=== PATIENT | male | born 1980 | race Caucasian/White ===

== ENCOUNTER 2016-12-15 06:13 | Day surgery (SDC) | payer BC ==
[~2016-12-15] VITALS: Ht 172.7 cm; Wt 81.6 kg
[2016-12-15] VITALS (11 sets, daily range): BP systolic 99–139; BP diastolic 46–81
[~2016-12-15 06:13] MED LIST: FINASTERIDE5 MG ORAL; FISH OIL 1,3601 EACH PO; FISH OIL CAP1000 MG ORAL; KETOCONAZOLE120 ML TP; VITAMIN D2000 UNI2 PO
[2016-12-15] MEDS ORDERED: Surgicel 4in x 8in TOPIC ONE (06:56)
[2016-12-15] MEDS ORDERED: Bupivacaine w/Epi 0.5% 30ml Vial INJ ONE (06:57)
[2016-12-15] MEDS ORDERED: ceFAZolin sod 1 GM in NS 55 ML IVPB ONE (07:00)
--- NOTE | 2016-12-15 07:10 | Anethesia Preoperative Eval ---
Anesthesia Pre-op PMH/ROS General Date of Evaluation: Dec 15, 2016 Anesthesiologist: José Antonio ASA Score: ASA 1 Mallampati Score Class I : Soft palate, uvula, fauces, pillars visible Class II: Soft palate, uvula, fauces visible Class III: Soft palate, base of uvula visible Class IV: Only hard plate visible Mallampati Classification: Class I Surgeon: Drew Diagnosis: Bilateral varicocele Surgical Procedure: Bilateral laparoscopic varicocelectomy Anesthesia History: none Family History: no anesthesia problems Allergies: Coded Allergies: No Known Allergies (Unverified , 12/14/16) Medications: see eMAR Past Medical History Cardiovascular: Denies: CAD, HTN, [place], arrhythmia, other, valve dz Pulmonary: Denies: COPD, KIKE, asthma, other Gastrointestinal/Genitourinary: Denies: CRI, ESRD, GERD, other Neurologic/Psychiatric: Denies: CVA, TIA, dementia, depression/anxiety, other Endocrine: Denies: DM, hypothyroidism, other, steroids HEENT: Denies: NISQUALLY (L), NISQUALLY (R), cataract (L), cataract (R), glaucoma, other Hematology/Immune: Denies: DVT, anemia, bleeding disorder, other Musculoskeletal/Integumentary: Denies: DDD, DJD, OA, RA, edema, other PSxH Narrative: Right shoulder surgery Anesthesia Pre-op Phys. Exam Physician Exam Last Vital Signs Date Time Temp Pulse Resp B/P Pulse Ox O2 Delivery O2 Flow Rate FiO2 12/15/16 06:49 97.3 60 20 104/71 100 Room Air Constitutional: NAD Cardiovascular: RRR Respiratory: CTA Airway Exam Mallampati Score: Class I MO: full ROM: full Teeth: intact Anesthesia Pre-op A/P Labs see chart Risk Assessment & Plan Assessment: ASA I Plan: GA Status Change Before Surgery: No Pre-Antibiotics Drug: Ancef 2g Given Within 1 Hr of Incision: Yes FLAVIO RAM M.D. Dec 15, 2016 07:10
[2016-12-15] MEDS ORDERED: LR 1000ml 1,000 ML IVLG SCH (07:26)
[2016-12-15] MEDS ORDERED: DiphenhydrAMINE 50mg/ml Inj IVP PRN (07:30)
[2016-12-15] MEDS ORDERED: fentaNYL 100 mcg/2 mL IV PRN (07:30)
[2016-12-15] MEDS ORDERED: Metoclopramide 10mg/2ml Inj IVP PRN (07:30)
[2016-12-15] MEDS ORDERED: Hydromorphone 0.5mg/0.5ml inj IVP PRN (07:30)
[2016-12-15] MEDS ORDERED: Ketorolac 30mg Inj IV PRN (07:30)
[2016-12-15] MEDS ORDERED: Metoclopramide 10mg/2ml Inj ONE (07:45)
[2016-12-15] MEDS ORDERED: Propofol 10mg/ml 20ml IV ONE (07:45)
[2016-12-15] MEDS ORDERED: Dexamethasone 4mg/ml vial ONE (07:45)
[2016-12-15] MEDS ORDERED: Lidocaine 1% MPF 10mg/ml 5ml ONE (07:45)
[2016-12-15] MEDS ORDERED: Sterile Water Irrig 1000ml IRRIG ONE (07:45)
[2016-12-15] MEDS ORDERED: LR 1000ml ONE (07:45)
[2016-12-15] MEDS ORDERED: fentaNYL 250mcg/5ml ONE (07:45)
[2016-12-15] MEDS ORDERED: Ketorolac 30mg Inj ONE (07:45)
[2016-12-15] MEDS ORDERED: NS Irrig 1000ml ONE (07:45)
[2016-12-15] MEDS ORDERED: Midazolam 2mg/2ml Inj ONE (07:45)
[2016-12-15] MEDS ORDERED: Nimbex 2mg/ml Inj 10ML IVP ONE (07:45)
--- NOTE | 2016-12-15 07:57 | Pre-Procedure Note/Attestation ---
Pre-Procedure Note/Attestation Complete Prior to Procedure Planned Procedure: bilateral Procedure Narrative: laparoscopic varicicelectomy Indications for Procedure Pre-Operative Diagnosis: bilateral varecocele Attestation I attest that I discussed the nature of the procedure; its benefits; risks and complications; and alternatives (and the risks and benefits of such alternatives ), prior to the procedure, with the patient (or the patient's legal hospital sales representative). I attest that, if there was a reasonable possibility of needing a blood transfusion, the patient (or the patient's legal hospital sales representative) was given the [facility] standardized written summary, pursuant to the [place] Blood Safety Act ([place] Health and Safety Code # 1645, as amended). I attest that I re-evaluated the patient just prior to the surgery and that there has been no change in the patient's H&P, except as documented below: Héctor Russell MD Dec 15, 2016 07:57
--- NOTE | 2016-12-15 07:59 | Brief Operative Note ---
Immediate Post Operative Note Operative Note Pre-op Diagnosis: bilateral varecocele Procedure: bilateral laparoscopic varicocelectomy Post-op Diagnosis: same Post-op Diagnosis: same as pre-op Surgeon: Mao Russell Anesthesia: general Specimen: none Complications: none Condition: stable Implant(s) used?: No Héctor Russell MD Dec 15, 2016 07:59
[2016-12-15] MEDS ORDERED: D5 1/2NS 1,000 ML IV SCH (08:00)
[2016-12-15] MEDS ORDERED: Tylenol #3 tab (300mg/30mg) ORAL PRN (08:00)
[2016-12-15] MEDS ORDERED: HYDROmorphone 1mg/ml Carpuject SUBQ PRN (08:00)
[2016-12-15] MEDS ORDERED: Norco 5mg/325mg tab ORAL PRN (08:00)
[2016-12-15] MEDS ORDERED: NS Irrig 1000ml IRRIG ONE (08:23)
[2016-12-15] MEDS: Bupivacaine 0.5% Inj 30 ml vial INJ ONE ×2 (08:37→08:50)
--- NOTE | 2016-12-15 09:08 | Immediate Post-Op Evaluation ---
Immediate Post-Op Evalulation Immediate Post-Op Evalulation Procedure: Laparoscopic bilateral varicolectomy Date of Evaluation: Dec 15, 2016 Time of Evaluation: 09:08 IV Fluids: 600 Blood Products: 0 Estimated Blood Loss: min Urinary Output: 0 Blood Pressure Systolic: 134 Blood Pressure Diastolic: 81 Pulse Rate: 95 Respiratory Rate: 16 O2 Sat by Pulse Oximetry: 100 Temperature (Fahrenheit): 97.4 Pain Score (1-10): 0 Nausea: No Vomiting: No Complications 0 Patient Status: awake, reacts, patent, none Hydration Status: adequate Drug: Ancef 2g Given Within 1 Hr of Incision: Yes Time Given: 08:00 FLAVIO RAM M.D. Dec 15, 2016 09:08
[2016-12-15] MEDS ORDERED: Meperidine 25mg/0.5ml Inj IV ONE (09:45)
--- NOTE | 2016-12-15 10:51 | 48 Hour Post Anesthesia Eval ---
Post Anesthesia Evaluation Procedure: Laparoscopic bilateral varicolectomy Date of Evaluation: Dec 15, 2016 Time of Evaluation: 10:30 Blood Pressure Systolic: 99 0: 46 Pulse Rate: 81 Respiratory Rate: 15 Temperature (Fahrenheit): 97.6 O2 Sat by Pulse Oximetry: 97 Airway: patent Nausea: No Vomiting: No Pain Intensity: 1 Hydration Status: adequate Cardiopulmonary Status: at baseline Mental Status/LOC: patient returned to baseline Post-Anesthesia Complications: 0 Follow-up care needed: ready to discharge FLAVIO RAM M.D. Dec 15, 2016 10:51
--- NOTE | 2016-12-17 03:30 | Operative Note - Dictated ---
DATE: 12/15/2016 PREOPERATIVE DIAGNOSIS: Bilateral varicoceles. POSTOPERATIVE DIAGNOSIS: Bilateral varicoceles. OPERATION: Laparoscopic bilateral varicocelectomy. SURGEON: Dr. Héctor Russell. ANESTHESIA: General. FINDINGS: Varicose veins on both sides. INDICATION FOR SURGERY: The patient had low suprapubic pain and bilateral varicoceles. Treatment options were explained to him in great length including all potential complications. He signed a consent. He was brought to the operating room, placed in supine position, prepped and draped in standard fashion. Under general anesthesia, three 5 mm port entrance were made with a sharp knife and three 5 mm trocars were placed. The confirmed the above findings. Using sharp dissection, the veins were mobilized. on both sides. . There was no evidence of bleeding. Estimated blood loss was 1 mL. The procedure was terminated and closure of subcuticular with 4-0 Monocryl closure. Dressings, sponge count and instrument count was correct. Héctor Russell M.D. DR: Dionne JOB#: [id number] CC:
== END 2016-12-15 12:20 | disposition home or self-care (01) ==
LOC: SUR 06:13
DX: I86.1 Scrotal varices (principal); N46.8 Other male infertility
CPT/HCPCS: 55550; J1100; J1170; J1885; J2250; J2405; J2704; J2765; J3010; J3490; J7120; 94003; 94150; J2180